=== PATIENT | female | born 1965 | race Caucasian/White ===

== ENCOUNTER 2016-10-20 11:20 | Emergency (ER) | payer OTHER ==
[~2016-10-20] VITALS: Wt 109.1 kg
[2016-10-20 12:44] LABS: URINE BLOOD (Dip) POC Trace-intact (NEGATIVE)
[2016-10-20] MEDS ORDERED: NYST1POW22 TOPICAL (13:05)
[2016-10-20] MEDS ORDERED: FLUC150T17 PO (13:05)
--- NOTE | 2016-10-20 13:15 | ERD ---
ER Documentation Chief Complaint Date/Time DATE: 10/20/16 TIME: 13:14 Chief Complaint vaginal discharge HPI This 51-year-old female complains of vaginal itching and discharge for last 3 days. She has not, fevers, abdominal pain, flank pain. She has a history of diabetes she has had yeast infections in the past and it feels similar. There is an additional complaints of itchy rash underneath the folds of her fat on her abdomen as well. ROS All systems reviewed and are negative except as per history of present illness. Medications Home Meds Active Scripts Nystatin (Nystatin Powder) 1 Each Powder.ea., 1 APPLIC TOPICAL BID for 7 Days, # 1 BOTTLE Prov:LILLIE COTE MD 10/20/16 Fluconazole* (Diflucan*) 150 Mg Tablet, 150 MG PO ONCE, #2 TAB Repeat after 1 week for persistent symptoms. Prov:LILLIE COTE MD 10/20/16 PMhx/Soc Hx Miscellaneous Medical Probl: Yes (dm) Physical Exam Vitals Vital Signs Date Time Temp Pulse Resp B/P Pulse Ox O2 Delivery O2 Flow Rate FiO2 10/20/16 11:32 97.8 75 20 169/75 97 Physical Exam Const: [] Ill-appearing. Morbidly obese. Head: Atraumatic Eyes: Normal Conjunctiva ENT: Normal External Ears, Nose and Mouth. Neck: Full range of motion..~ No meningismus. Resp: Clear to auscultation bilaterally Cardio: Regular rate and rhythm, no murmurs Abd: Soft, non tender, non distended. Normal bowel sounds Skin: No petechiae purpura. There is a erythematous rash with satellite lesions in the bilateral pannus of her abdomen. There is inflammation and redness in her external vaginal area without vesicles, tenderness, skin breakdown, lacerations. Back: No midline or flank tenderness Ext: No cyanosis, or edema Neur: Awake and alert Psych: Normal Mood and Affect Results 24 hrs Laboratory Tests Test 10/20/16 12:44 Bedside Urine Blood Trace-intact Bedside Urine Glucose (UA) Negative Bedside Urine Ketones (LAB) Negative Bedside Urine Leukocyte Esterase (L Trace Bedside Urine Nitrite (LAB) Negative Bedside Urine Protein (LAB) Negative Bedside Urine pH (LAB) 7.0 Procedures/MDM Urine shows trace leukocytes. Patient presents with signs and symptoms of monilia and tinea cruris. She will be treated with Diflucan, nystatin powder by request. Trace leukocytes lightly from external vaginitis. Patient discharged home with instructions to return for fevers, vomiting, abdominal pain , new worsening symptoms with primary doctor. Departure Diagnosis: Primary Impression: Tinea cruris Additional Impression: Vaginitis Chronicity: acute Qualified Code: N76.0 - Acute vaginitis Condition: Stable Patient Instructions: Vaginal Infection: Yeast (Candidiasis), Tinea Cruris, General Additional Instructions: Cheque otro vez con bangura doctor primario en el proximo hernández or regresa para mas o nueva simptomas. LILLIE COTE MD Oct 20, 2016 13:15
== END 2016-10-20 13:36 | disposition home or self-care (01) ==
LOC: FTE 11:20
DX: B35.6 Tinea cruris (principal); N76.0 Acute vaginitis; E11.9 Type 2 diabetes mellitus without complications
CPT/HCPCS: 81003; Z7502

== ENCOUNTER 2019-01-02 13:48 | Emergency (ER) | payer MEDICAID, OTHER ==
[~2019-01-02] VITALS: Ht 154.9 cm; Wt 103.8 kg
[~2019-01-02 13:48] MED LIST: FLUC150T PO; NYST1POW22 TOPICAL
[2019-01-02 13:54] VITALS: BP 138/70; PULSE 78; RESP 20; Ht 154.9 cm; Wt 103.8 kg
[2019-01-02] MEDS ORDERED: KETOROLAC 60 MG INJ IM STA (16:33)
[2019-01-02] MEDS ORDERED: HYDROCODONE/APAP (5/325) TAB PO ONE (17:00)
[2019-01-02] MEDS ORDERED: HYDR-4011 PO (17:34)
[2019-01-02] MEDS ORDERED: IBUP-1542 PO (17:34)
[2019-01-02] MEDS ORDERED: CEPH-443 PO (17:34)
--- NOTE | 2019-01-02 17:43 | ERD ---
ER Documentation Chief Complaint Chief Complaint low back pain d/t fall yesterday HPI 53-year-old female presents with complaint of dysuria, low back pain for the past 3 days. Has not been taking any treatments. Denies hematuria, vomiting, fevers. History of diabetes and hypertension. Takes metformin. Denies allergies. ROS All systems reviewed and are negative except as per history of present illness. Medications Home Meds Active Scripts Hydrocodone/Acetaminophen ([place] 5-325 Tablet) 1 Each Tablet, 1 TAB PO Q6H PRN for PAIN, #10 TAB Prov:ZONIA SALAS 01/02/19 Ibuprofen* (Motrin*) 600 Mg Tab, 600 MG PO Q6H PRN for PAIN AND OR ELEVATED TEMP , #30 TAB Prov:ZONIA SALAS 01/02/19 Cephalexin* (Keflex*) 500 Mg Capsule, 500 MG PO BID for 14 Days, CAP Prov:ZONIA SALAS 01/02/19 Nystatin (Nystatin Powder) 1 Each Powder.ea., 1 APPLIC TOPICAL BID for 7 Days, #1 BOTTLE Prov:LILLIE COTE MD 10/20/16 Fluconazole* (Diflucan*) 150 Mg Tablet, 150 MG PO ONCE, #2 TAB Repeat after 1 week for persistent symptoms. Prov:LILLIE COTE MD 10/20/16 Allergies Allergies: Coded Allergies: No Known Allergy (Unverified , 01/02/19) PMhx/Soc Medical and Surgical Hx: pt denies Surgical Hx Hx Cardiac Disorders: Yes (HTN) Hx Miscellaneous Medical Probl: Yes (dm) Hx Alcohol Use: No Hx Substance Use: No Hx Tobacco Use: No Smoking Status: Never smoker FmHx Family History: No diabetes, No coronary disease, No other Physical Exam Vitals Vital Signs Date Temp Pulse Resp B/P (MAP) Pulse Ox O2 O2 Flow FiO2 Time Delivery Rate 01/02/19 97.1 78 20 138/70 99 13:54 (92) Physical Exam Const: No acute distress Head: Atraumatic Eyes: Normal Conjunctiva ENT: Normal External Ears, Nose and Mouth. Neck: Full range of motion. No meningismus. Resp: Clear to auscultation bilaterally Cardio: Regular rate and rhythm, no murmurs Abd: Soft, non tender, non distended. Normal bowel sounds Skin: No petechiae or rashes Back: No midline tenderness. Positive CVA tenderness bilaterally. Ext: No cyanosis, or edema. No saddle numbness Neur: Awake and alert Psych: Normal Mood and Affect Result Diagram: 01/02/19 1639 01/02/19 1639 Results 24 hrs Laboratory Tests Test 01/02/19 16:39 White Blood Count 10.4 10^3/ul Red Blood Count 4.53 10^6/ul Hemoglobin 11.4 g/dl Hematocrit 36.6 % Mean Corpuscular Volume 80.8 fl Mean Corpuscular Hemoglobin 25.2 pg Mean Corpuscular Hemoglobin Concent 31.1 g/dl Red Cell Distribution Width 15.2 % Platelet Count 367 10^3/UL Mean Platelet Volume 9.3 fl Immature Granulocytes % 0.600 % Neutrophils % 68.3 % Lymphocytes % 21.5 % Monocytes % 6.9 % Eosinophils % 2.2 % Basophils % 0.5 % Nucleated Red Blood Cells % 0.0 /100WBC Immature Granulocytes # 0.060 10^3/ul Neutrophils # 7.1 10^3/ul Lymphocytes # 2.2 10^3/ul Monocytes # 0.7 10^3/ul Eosinophils # 0.2 10^3/ul Basophils # 0.1 10^3/ul Nucleated Red Blood Cells # 0.0 10^3/ul Urine Color STRAW Urine Clarity CLEAR Urine pH 5.0 Urine Specific [place] 1.012 Urine Ketones NEGATIVE mg/dL Urine Nitrite NEGATIVE mg/dL Urine Bilirubin NEGATIVE mg/dL Urine Urobilinogen NEGATIVE mg/dL Urine Leukocyte Esterase TRACE Óscar/ul Urine Microscopic RBC 1 /HPF Urine Microscopic WBC 1 /HPF Urine Squamous Epithelial Cells FEW /HPF Urine Bacteria FEW /HPF Urine Hemoglobin NEGATIVE mg/dL Urine Glucose NEGATIVE mg/dL Urine Total Protein NEGATIVE mg/dl Sodium Level 140 mmol/L Potassium Level 4.0 mmol/L Chloride Level 103 mmol/L Carbon Dioxide Level 27 mmol/L Anion Gap 10 Blood Urea Nitrogen 17 mg/dl Creatinine 0.61 mg/dl Est Glomerular Filtrat Rate mL/min > 60 mL/min Glucose Level 67 mg/dl Calcium Level 9.4 mg/dl Total Bilirubin 0.1 mg/dl Direct Bilirubin 0.00 mg/dl Indirect Bilirubin 0.1 mg/dl Aspartate Amino Transf (AST/SGOT) 20 IU/L Alanine Aminotransferase (ALT/SGPT) 20 IU/L Alkaline Phosphatase 108 IU/L Total Protein 7.8 g/dl Albumin 4.1 g/dl Globulin 3.70 g/dl Albumin/Globulin Ratio 1.10 Current Medications Medications Dose Sig/Mohan Start Time Status Last (Trade) Ordered Route PRN Stop Time Admin Dose Reason Admin Ketorolac 60 mg ONCE STAT 01/02/19 DC 01/02/19 Tromethamine IM 16:33 16:48 (Toradol) 01/02/19 16:37 1 tab ONCE ONCE 01/02/19 DC 01/02/19 Acetaminophen PO 17:00 16:50 / 01/02/19 17:01 Hydrocodone Bitart ([place] (5/325)) Ceftriaxone 1 gm ONCE ONCE 01/02/19 DC 01/02/19 Sodium IM 18:00 17:48 (Rocephin) 01/02/19 18:00 Procedures/MDM 53-year-old female presents with complaint of dysuria, low back pain for the past 3 days. Has not been taking any treatments. Denies hematuria, vomiting, fevers. History of diabetes and hypertension. Takes metformin. Denies allergies. Presentation consistent with pyelonephritis. Patient was given ceftriaxone IM in the ER and discharged with Rx for Keflex for 14 days. I will suspicion for cauda equina, epidural abscess, or any other emergent condition. Patient discharged with strict ER precautions. Patient advised to follow up with PMD. All questions answered at discharge. Patient's UA had trace leuks and patient had acute CVA tenderness on the exam along with dysuria so decision was made to treat for possible pyelonephritis with IM ceftriaxone in the ER. patient was given Toradol and 1 [place] in the ER to help with the back pain. I have low suspicion for epidural abscess, cauda equina, abdominal aortic aneurysm, aortic dissection, spinal fracture, or other emergent conditions based on patient history and exam findings. Patient told if they experience leg weakness or numbness, or incontinence they need to return to the ER immediately. Patient discharged with strict ER precautions. Patient advised to follow up with PMD. All questions answered at discharge. Departure Diagnosis: Primary Impression: Pyelonephritis Additional Impression: Back pain Back pain location: low back pain Chronicity: acute Back pain laterality: bilateral Sciatica presence: without sciatica Qualified Codes: M54.5 - Low back pain Condition: Stable Patient Instructions: Pyelonephritis, Female (Adult) Referrals: [facility] YOU HAVE RECEIVED A MEDICAL SCREENING EXAM AND THE RESULTS INDICATE THAT YOU DO NOT HAVE A CONDITION THAT REQUIRES URGENT TREATMENT IN THE EMERGENCY DEPARTMENT. FURTHER EVALUATION AND TREATMENT OF YOUR CONDITION CAN WAIT UNTIL YOU ARE SEEN IN YOUR DOCTORS OFFICE WITHIN THE NEXT 1-2 DAYS. IT IS YOUR RESPONSIBILITY TO MAKE AN APPOINTMENT FOR FOLOW-UP CARE. IF YOU HAVE A PRIMARY DOCTOR --you should call your primary doctor and schedule an appointment IF YOU DO NOT HAVE A PRIMARY DOCTOR YOU CAN CALL OUR PHYSICIAN REFERRAL HOTLINE AT IF YOU CAN NOT AFFORD TO SEE A PHYSICIAN YOU CAN CHOSE FROM THE FOLLOWING [facility] [address] [facility] [address] [facility] [facility] [address] [facility] [address] [facility] [facility] [address] [facility]. [address] Additional Instructions: FOLLOW UP WITH YOUR PRIMARY CARE PHYSICIAN TOMORROW.Return to this facility if you are not improving as expected. ZONIA SALAS Jan 02, 2019 17:43
[2019-01-02] MEDS ORDERED: CEFTRIAXONE 1 GM INJ IM ONE (18:00)
== END 2019-01-02 17:52 | disposition home or self-care (01) ==
LOC: FTE 13:48
DX: N12 Tubulo-interstitial nephritis, not specified as acute or chronic (principal); I10 Essential (primary) hypertension; E11.9 Type 2 diabetes mellitus without complications; Z79.84 Long term (current) use of oral hypoglycemic drugs
CPT/HCPCS: 80053; 81001; 85025; 87086; J0696; J1885; Z7610; 96372

== ENCOUNTER 2019-05-19 09:52 | Emergency (ER) | payer MEDICAID ==
[~2019-05-19] VITALS: Ht 154.9 cm; Wt 102.8 kg
[~2019-05-19 09:52] MED LIST changes: +CEPH-443 PO; +DICL100G37 TOP; +HYDR-4011 PO; +IBUP-1542 PO; +TRAM50TA2 PO
[2019-05-19 09:57] VITALS: BP 206/77; PULSE 73; RESP 18; Ht 154.9 cm; Wt 102.8 kg
[2019-05-19] MEDS ORDERED: KETOROLAC 60 MG INJ IM STA (10:22)
--- NOTE | 2019-05-19 13:32 | ERD ---
ER Documentation Chief Complaint Chief Complaint generalized bodyache hx arthritis and fibromyalgia HPI 53-year-old female presenting with arthritis and diffuse body aches. Patient is taking gabapentin with no alleviation of symptoms. She states that she has constant pain and denies any new severe pain. Denies chest pain. Denies shortness of breath. Denies recent falls or injuries. Patient states this is her normal fibromyalgia pain. Medical history is hypertension and DM. NKDA. Surgical history . Social history denies ROS All systems reviewed and are negative except as per history of present illness. Medications Home Meds Active Scripts Diclofenac Sodium* (Voltaren* Gel) 1% -100 Gm Gel, 4 GM TOP QID, #1 TUB Prov:WADE ANGUIANO PA-C 05/19/19 Tramadol HCl (Tramadol HCl) 50 Mg Tablet, 50 MG PO Q4 PRN for PAIN, #20 TAB Prov:WADE ANGUIANO PA-C 05/19/19 Hydrocodone/Acetaminophen ([place] 5-325 Tablet) 1 Each Tablet, 1 TAB PO Q6H PRN for PAIN, #10 TAB Prov:ZONIA SALAS 01/02/19 Ibuprofen* (Motrin*) 600 Mg Tab, 600 MG PO Q6H PRN for PAIN AND OR ELEVATED TEMP, #30 TAB Prov:ZONIA SALAS 01/02/19 Cephalexin* (Keflex*) 500 Mg Capsule, 500 MG PO BID for 14 Days, CAP Prov:ZONIA SALAS 01/02/19 Nystatin (Nystatin Powder) 1 Each Powder.ea., 1 APPLIC TOPICAL BID for 7 Days, #1 BOTTLE Prov:LILLIE COTE MD 10/20/16 Fluconazole* (Diflucan*) 150 Mg Tablet, 150 MG PO ONCE, #2 TAB Repeat after 1 week for persistent symptoms. Prov:LILLIE COTE MD 10/20/16 Allergies Allergies: Coded Allergies: No Known Allergy (Unverified , 01/02/19) PMhx/Soc History of Surgery: Yes (C SECTION) Hx Cardiac Disorders: Yes (HTN) Hx Miscellaneous Medical Probl: Yes (arthritis,fibromyalgia) Hx Alcohol Use: No Hx Substance Use: No Hx Tobacco Use: No Smoking Status: Never smoker FmHx Family History: No diabetes, No coronary disease, No other Physical Exam Vitals Vital Signs Date Temp Pulse Resp B/P (MAP) Pulse Ox O2 O2 Flow FiO2 Time Delivery Rate 05/19/19 98.2 73 18 206/77 98 09:57 (120) Physical Exam GENERAL: The patient is well-appearing, well-nourished, in no acute distress HEENT: Atraumatic. Conjunctivae are pink. Pupils equal, round, and reactive to light. There is no scleral icterus. Tympanic membranes clear bilaterally. Oropharynx clear. CHEST: Clear to auscultation bilaterally. There are no rales, wheezes or rhonchi. HEART: Regular rate and rhythm. No murmurs, clicks, rubs or gallops. EXTREMITIES: Equal pulses bilaterally. There is no peripheral clubbing, cyanosis or edema. No focal swelling or erythema. Full range of motion. Grossly neurovascularly intact. NEUROLOGIC: Alert and oriented. Cranial nerves II through XII intact. Motor strength in all 4 extremities with 5 out of 5 strength. Sensation grossly intact. Normal speech and gait. SKIN: There is no apparent rash or petechiae. The skin is warm and dry. Results 24 hrs Current Medications Medications Dose Sig/Mohan Start Time Status Last (Trade) Ordered Route PRN Stop Time Admin Dose Reason Admin Ketorolac 60 mg ONCE STAT 05/19/19 DC 05/19/19 Tromethamine IM 10:22 10:27 (Toradol) 05/19/19 10:23 Procedures/MDM ER course: Toradol given in ED. MDM: 53-year-old female presenting with body aches. I have low suspicion for acute fracture dislocation. I have low suspicion for tendon or ligament rupture. I have low suspicion for septic joint or neuro deficit. Patient likely has exacerbated pain secondary to her chronic illness and will be discharged with supportive medications. Patient is told symptoms change or worsen to return immediately to the ER. All questions answered at discharge Departure Diagnosis: Primary Impression: Arthritis Condition: Stable Patient Instructions: Osteoarthritis Referrals: [facility] YOU HAVE RECEIVED A MEDICAL SCREENING EXAM AND THE RESULTS INDICATE THAT YOU DO NOT HAVE A CONDITION THAT REQUIRES URGENT TREATMENT IN THE EMERGENCY DEPARTMENT. FURTHER EVALUATION AND TREATMENT OF YOUR CONDITION CAN WAIT UNTIL YOU ARE SEEN IN YOUR DOCTORS OFFICE WITHIN THE NEXT 1-2 DAYS. IT IS YOUR RESPONSIBILITY TO MAKE AN APPOINTMENT FOR FOLOW-UP CARE. IF YOU HAVE A PRIMARY DOCTOR --you should call your primary doctor and schedule an appointment IF YOU DO NOT HAVE A PRIMARY DOCTOR YOU CAN CALL OUR PHYSICIAN REFERRAL HOTLINE AT IF YOU CAN NOT AFFORD TO SEE A PHYSICIAN YOU CAN CHOSE FROM THE FOLLOWING [facility] CL[facility] [address] [facility] [address] [facility] [facility] [address] [facility] [address] [facility] [address] [facility]. [facility] [address] Additional Instructions: FOLLOW UP WITH YOUR PRIMARY CARE PHYSICIAN TOMORROW.Return to this facility if you are not improving as expected. WADE ANGUIANO PA-C May 19, 2019 13:32
== END 2019-05-19 10:53 | disposition home or self-care (01) ==
LOC: FTE 09:52
DX: M19.90 Unspecified osteoarthritis, unspecified site (principal); I10 Essential (primary) hypertension; E11.9 Type 2 diabetes mellitus without complications
CPT/HCPCS: 96372; J1885; Z7502